=== PATIENT | female | born 1970 | race Caucasian/White ===

== ENCOUNTER → 2021-05-06 15:15 | Outpatient (CLI) | payer OTHER, SELFPAY ==
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
== END ==
PROVIDERS: Visit Provider Chiropractor
DX: M54.2 Cervicalgia (principal)
CPT/HCPCS: 72052

== ENCOUNTER 2021-05-22 11:30 | Emergency (ER) | payer OTHER, SELFPAY ==
--- NOTE | ~2021-05-22 | XR_ITS ---
EXAMINATION: XR wrist RT min 3V INDICATION: Right wrist pain, initial encounter TECHNIQUE: Four views of the right wrist are obtained. COMPARISON: None available FINDINGS: There is an acute, traumatic, closed, comminuted, intra-articular fracture of the distal ra dius. There are 30 degrees of dorsal angulation at the fracture site. Soft tissue swelling surrounds the fracture. An ulnar styloid avulsion is questioned. No definite additional fracture is seen. IMPRESSION: 1. Comminuted intra-articular fracture at the distal radius with dorsal angulation. Reviewed, dictated and finalized at location A. IMPRESSION: 1. Comminuted intra-articular fracture at the distal radius with dorsal angulat ion.
[2021-05-22 11:37] VITALS: BP 145/82; PULSE 83; RESP 18; TEMP 36.4; O2SAT 99
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
[2021-05-22] MEDS: KETOROLAC (*BKC) 60 MG/2 ML VIAL IM (12:55)
== END 2021-05-22 13:59 | disposition home or self-care (01) ==
PROVIDERS: Emergency Provider Nurse Practitioner
DX: S52.501A Unspecified fracture of the lower end of right radius, initial encounter for closed fracture (principal); W17.81XA Fall down embankment (hill), initial encounter; F17.210 Nicotine dependence, cigarettes, uncomplicated
CPT/HCPCS: 29125; 73110; 96372; 99214; A4565; G0463; J1885

== ENCOUNTER 2021-05-26 01:58 | Day surgery (SDC) | payer OTHER, SELFPAY ==
[2021-05-25 08:43] VITALS: BMI 33.7
--- NOTE | 2021-05-25 15:12 | WPDANESEPPF ---
Anes - Initial Pre Proc Eval Procedure: Operation Date: 05/26/21 14:00 Proposed Procedures p Open Reduction Internal Fixation Right Wrist Fracture - Jaret Miles MD Date/Time: 05/25/21 15:12 Surgeon: Jaret Miles MD Pre Op Diagnosis: right wrist fracture Patient Data Age: 51 Gender: F Height: 1.65 m Weight: 92 kg Allergies Allergy/AdvReac Type Severity Reaction Status Date / Time No Known Allergies Allergy Verified 05/25/21 08:59 Home Medications Medication Instructions Recorded Confirmed Type ibuprofen 800 mg PO TID PRN #20 tablet 05/22/21 05/25/21 Rx hydrocodone-acetaminophen 1 - 2 tablet PO Q6H PRN #20 tablet 05/26/21 Rx ondansetron 8 mg PO Q8H PRN #10 tablet 05/26/21 Rx Patient hx anesthesia problems: none Family hx anesthesia problems: none PMFSH Past Medical History Medical History No pertinent past medical history Surgical History Surgical History No pertinent past surgical history Family History Family History Mother Uterine cancer Social History Social History (Updated 05/25/21 @ 08:59 by Francisca Joel RN) Smoking packs per day: 0.25 Smoking cigarettes per day: 5.0 Years smoked: 30 Smoking pack-years: 7.50 Smoking status: Current some day smoker Tobacco type: cigarettes Second hand tobacco smoke exposure: No Alcohol intake: current Substance use: never Living arrangements: alone Gender identity (if verbalized by the patient): Female Sexual Orientation (if Verbalized by the Patient): Straight or Heterosexual Spiritual care concerns: No Anes - Eval Final PreProcedure Day of Procedure 05/25/21 15:12 Patient weight: obese Heart: regular rate and rhythm Lungs: clear to auscultation and normal air movement Airway: Mallampati scale class II Neurological: alert and oriented Last oral intake: >/= 8 hours ASA classification: II Emergent: no Anesthetic plan: proceed Anesthesia type and monitoring: general LMA and standard monitoring Informed Consent: The patient's anesthetic plan and its attendant risks and benefits were discussed with the patient/family/POA. Questions were solicited and answers provided to the satisfaction of the patient/family/POA.
[2021-05-26] VITALS (7 sets, daily range): BP systolic 118–162; BP diastolic 70–86; PULSE 68–77; RESP 12–24; TEMP 36.3–37.4; O2SAT 95–99; BMI 33.3
--- NOTE | ~2021-05-26 | XR_ITS ---
EXAMINATION: XR surgery orthopedic DATE: 05/26/2021 14:50 INDICATION: Comminuted intra-articular fracture of the distal right radius. TECHNIQUE: 4 fluoroscopic images of the wrist were obtained during procedure performed by Dr. Miles . Radiologist was not present for the imaging or procedure. The amount of fluoroscopy time used durin g this procedure was 0.2 minutes. A total of 4 images were obtained. COMPARISON: 05/22/2021 FINDINGS: Interval open reduction internal fixation of the previous noted comminuted intra-articular fracture o f the distal right radius which is now in near-anatomic alignment. The fracture is fixed with a volar T plate and screw fixation. No significant fracture gap or incongruity appreciated at the articular cortex. Tiny calcific density which could represent either degenerative loose body or tiny fracture f ragment positioned near the tip of the ulnar styloid process. Joint spaces are normal. IMPRESSION: 1. Near-anatomic alignment post volar T plate and screw fixation of a comminuted intra-articular frac ture of the distal right radius. Reviewed, dictated and finalized at location A. IMPRESSION: 1. Near-anatomic alignment post volar T plate and screw fixation of a comminute d intra-articular fracture of the distal right radius.
--- NOTE | 2021-05-26 07:01 | WPDHPUPDATE1 ---
History and Physical Update Update Date/Time: 05/26/21 07:01 History and Physical has been reviewed, including an updated exam of the patient. There are NO changes in the patient's condition. Risks, benefits, and alternatives have been discussed and questions answered. Patient agrees to proceed with procedure.
[2021-05-26] MEDS: LACTATED RINGERS 1,000 ML 30 ML IV CONT ×2 (12:48→15:13)
[2021-05-26] MEDS: ACETAMINOPHEN 500 MG TABLET 1000 MG PO (13:02)
[2021-05-26] MEDS: KETOROLAC 15 MG/ML VIAL (*BKC) IV PUSH (13:02)
--- NOTE | 2021-05-26 13:46 | WPDANESPNB ---
Anes - Peripheral Nerve Block Date/Time: 05/26/21 13:46 I have discussed with the patient/family/POA the placement of a peripheral nerve block for post-operative pain management, including associated risks, benefits, complications, and side effects. Alternative methods of post-operative analgesia were detailed. Questions were solicited and answers provided to the satisfaction of the patient/family/POA. Time-Out: A pre-procedural Time-Out was completed immediately before starting the procedure and confirmed: Patient Identification, Site, Procedure, Patient Position and the Availability of Requisite Equipment. Clinical Indications: Acute post-operative pain management requested by the operative surgeon. Nerve Block Insertion Note Anes-nerve block: supraclavicular right Patient position: supine Skin prep: chlorhexidine Needle: 22 gauge, stimulating, insulated echogenic needle. Needle length: 50 mm Technique: ultrasound Injectate: bupivacaine 0.5% with epi 5 mcg/ml (30cc- no epi) Observations: tolerated well Complications: none Procedure start time:: 1340 Procedure end time:: 134
--- NOTE | 2021-05-26 13:51 | P.OP_ITS ---
Procedure Note - Detailed Date of Procedure 05/26/21 Pre-op Diagnosis right wrist fracture Post-op Diagnosis same Procedure Performed Open reduction internal fixation right distal radius fracture Surgeon Jaret Miles MD Architectural [employer]sman 1st assistant federal public defender Anesthesia general Indications 51-year-old woman who fell in her right outstretched hand. Comminuted intra- articular distal radius fracture with angulation noted on radiographs. Patient presents for operative treatment. Description of Procedure What was done: After informed consent the operative extremity was marked in the preoperative holding area. Patient received intravenous antibiotics. Patient taken to the operating room where they underwent general anesthesia. Positioned supine on operating table. Time-out performed confirming the patient, patient's site of surgery and the plan. Right upper extremity prepped and draped in the usual sterile surgical fashion using a ChloraPrep skin solution. Hand and wrist exsanguinated and arm tourniquet inflated to 225 mmHg. Standard volar flexor carpi radialis incision utilized. Fifteen blade knife used to make longitudinal incision. Flexor carpi radialis tendon identified tendon sheath incised in line with skin incision. Tendon retracted to protect the neurovascular elements. Floor of the tendon sheath incised with a 15 blade knife. Flexor pollicis retracted medial. pronator quadratus then divided off the watershed line and reflected ulnarward to expose the distal radius and the fracture. Fracture was then reduced provisionally pinned. Image intensification confirm reduction. Fixation achieved with the distal radius volar plate. This was provisionally pinned into place and confirmed with image intensification. Fixation to the proximal fragment with a 3.5 mm screw. Distal fracture fixation achieved with 2.0 mm locking pegs and 2.0 mm fully threaded locking screws for the radial styloid. Fixation was then completed proximally with the remaining 3.5 mm screws. Final reduction of the fracture, alignment of the wrist joint and placement of the hardware verified with image intensification. Wound thoroughly irrigated with antibiotic solution. Pronator repaired with 3 0 Monocryl interrupted suture. Skin closed with interrupted subcutaneous 000 Monocryl interrupted suture and running 000 Monocryl subcuticular stitch. Local anesthetic with 0.5% Marcaine. Sterile dressing applied. Padded dressing and splint then applied. Tourniquet released and good capillary refill noted in the fingers and thumb. Patient awoke from anesthesia, extubated and taken to the recovery room in stable condition. All sponge and instrument counts correct at the end of case. [employer] volar distal radius locking plate with pegs and screws. Estimated Blood Loss 10 Tourniquet Time 50 Drains No Packing No Pathology none sent Complications None Condition stable Disposition PACU
[2021-05-26] MEDS: ceFAZolin 2 GM/D5W 50 ML 2 GM/50 ML BAG IVPB (13:55)
== END 2021-05-26 16:54 | disposition home or self-care (01) ==
PROVIDERS: Visit Provider Orthopaedic Surgery
PROC: (CPT 25575; principal; 2021-05-26 14:00)
DX: S52.571A Other intraarticular fracture of lower end of right radius, initial encounter for closed fracture (principal); G89.18 Other acute postprocedural pain; F17.210 Nicotine dependence, cigarettes, uncomplicated; E66.9 Obesity, unspecified; Z68.33 Body mass index [BMI] 33.0-33.9, adult; W17.81XA Fall down embankment (hill), initial encounter; Y93.H2 Activity, gardening and landscaping
CPT/HCPCS: 25608; 64415; A4565; A9270; C1713; J0690; J1100; J1885; J2250; J2405; J2704; J3010; J7120